=== PATIENT | male | born 1970 | race Caucasian/White ===

== ENCOUNTER 2017-02-28 23:53 | Emergency (ER) | payer OTHER ==
[~2017-02-28 23:53] MED LIST: ASAB PO; MAGOX4 PO; PROTONIX PO; ROLAIDS PO
== END 2017-03-01 00:02 | disposition home or self-care (01) ==
LOC: ER 23:53
DX: M54.2 Cervicalgia (principal); F17.200 Nicotine dependence, unspecified, uncomplicated; Z79.899 Other long term (current) drug therapy
CPT/HCPCS: 96372; 99283; J1885